=== PATIENT | female | born 1940 | race Caucasian/White ===

== ENCOUNTER 2024-09-02 19:10 | Inpatient (IN) | payer MEDICAID, SELFPAY ==
[2024-09-02 19:41] VITALS: BP 108/72; PULSE 78; RESP 18; TEMP 36.9; O2SAT 94
--- NOTE | 2024-09-02 19:57 | ED_ITS ---
HPI - General Adult General Date Seen: 09/02/24 Chief complaint: GI Bleed Stated complaint: low hemoglobin 5.2 Time Seen by Provider: 09/02/24 19:46 History of Present Illness HPI narrative: 84-year-old female brought to the ER today from her care facility at [facility] because she had a lab draw showing low hemoglobin of 5.2. History is limited because the patient is not a reliable historian. It she seems to have some memory or cognitive dysfunction. Unclear if this is due to previous stroke or if she has underlying dementia. History is obtained partly from the patient, probably from her medical records, and partly from phone conversation with her son Altaf Per the patient she has been having ?stomach problems? off and on for a while. Difficult to get her to delineate what the stomach problems are how long that been going on. At some point she says that she think she has colitis and it looks like in her medical record she was hospitalized for C diff colitis last February. She then says that she has been having intermittent stomach pain and diar vijaya for a year or maybe longer. She says ?they? were going to do a scope but then they keep putting it off. She says she is not having any diarrhea recently. She also says that she is not currently on any anticoagulants (but Eliquis is listed on her med list) History from the patient's son Altaf is that she does have history of AFib and has had stroke in the past when she was taken off Eliquis. It sounds like this was a medication air where she was admitted to a senior living and they did not continue her Eliquis for a week and that she had a significantly disabling stroke after that. After that stroke she then had been admitted at a senior living in the [facility] which she did not like and so she was subsequent transferred to [facility] in [place]. She has been there since this summer. Son says that he is pretty confident she is on Eliquis, because she has had a stroke when she had been taken office in the past and would be at high risk for stroke if taken off it again. Her son is aware that she does have ongoing trouble with her abdomen. It is unclear if she is having pain, nausea, or diarrhea. Sign is not a breast of what workup she has had for that. He thinks she probably had a colonoscopy a couple of years ago. Patient confirms that she did have a colonoscopy and thinks that that she was told to have another 1 in a couple of years but does not remember what the colonoscopy showed. Son is not clear if she has had any diarrhea lately or not. Patient says she does not think she has. Patient denies any black or bloody stools. However she subsequently says that she needs help from her senior living staff to clean her up after bowel movements and that she does not know what color her stools have been. She does not have any previous records in the [facility] system She does have records through [facility] care link. Past medical history includes previous CVA, hypertension, atrial fibrillation not on anticoagulation, chronic heart failure with preserved ejection fraction, dysphagia, constipation, colon polyps, asthma, pancreatic duct stricture, osteopenia, tobacco use, chronic kidney disease stage 3, buttocks ulcers, left hip replacement, C diff( February 2024) Per discharge summary from [facility] from February 2024 83 y.o. 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 ? Hospitalized at [facility] 02/22 - 03/01/24 (day [employer]) where she presented with melena and acute on chronic anemia (Hgb 6.6). EGD 02/23 without bleeding, notable only for LA Grade C esophagitis. Transfused 2 unit with last Hgb 9.9 on 02/26. Started on BID PPI. Colonoscopy deferred to outpatient as she tested positive for c difficile (antigen and toxin positive) for which was started on oral vancomycin. Hospitalization notable for acute on chronic HFpEF treated with IV diuresis and on discharge furosemide increased to 40 mg twice daily from once daily. Discharge weight 181 lb. ? Upon return to her [facility] she was requiring 2 person assist and facility can only provide 1 assist so EMS called and brought to ED. ? Patient had no other concerns aside from feeling weaker than usual. Patient refused TCU as recommended at OSH. In ED, WBC 12.2, Hgb 11.6, plt 507, Na 133, Cr 1.34 and increased from 1.05 day [employer]. ? On admission patient continued to do well.no evidence of ongoing diarrhea.Patient refusing to have labs rechecked and refusing Glucose checks;Lasix was reduced to 40 mg po daily and metformin remains held due to stable BSL and limited oral intake . Patient discharged to SNF 03/05/24, discharged on Protonix, vancomycin, acetaminophen. Also on albuterol, atorvastatin, diltiazem 360 mg XR, Lexapro, ferrous sulfate, furosemide, DuoNebs, melatonin, or montelukast, Zofran, home oxygen 2 liters/minute,. Guaifenesin, senna, trazodone, vitamin-D Most recent hemoglobin in the [facility] system was 03/01/2024. At that time hemoglobin was 11.6. Her baseline hemoglobin dating back to 2020 ranges 11- 13.6. ... Related Data Allergies Allergy/AdvReac Type Severity Reaction Status Date / Time aspirin AdvReac Mild Verified 09/02/24 19:46 PFSH PFSH Social History Smoking Status: Never smoker How often do you have a drink containing alcohol: never AUDIT-C Alcohol total score: 0 Non-prescribed substance use: denies use service: No Exam Narrative: Exam Narrative: Constitutional: Appears well-developed and well-nourished. Alert. Conversant. Non toxic. She is fairly brisk and demanding. Before she will provide history she insists that I get her a diet Coke. After a brought her water she then insist that I bring her a warm blanket (she already had 3 blankets but had kicked them off). She is very brisk in vague with her history. She does not really cooperate with clarifying questions to try to delineate her symptoms and order of events. She does not know why she has it in the ER today. She is not sure if she had labs today or not (it looks like she did have labs today, according to records from her senior living). HENT: Head: Atraumatic. Nose: Nose normal. Mouth/Throat: Oral mucosa is clear and moist. no trismus. Pharynx normal. Tonsils symmetric. No tonsillar enlargement, erythema, or exudate. Eyes: Conjunctivae pale. EOM normal. Pupils equal, round, and reactive to light. No scleral icterus. Neck: Normal range of motion. Neck supple. No tracheal deviation present. Cardiovascular: Normal rate, regular rhythm. No gallop. No friction rub. No murmur heard. Symmetric radial artery pulses Pulmonary/Chest: Effort normal. No stridor. No respiratory distress. No wheezes. No rales. No rhonchi . No tenderness. Abdominal: Soft. Bowel sounds normal. No distension. No mass. Mild left upper quadrant tenderness. No rebound. No guarding. Musculoskeletal: RUE: Normal range of motion. No tenderness. No deformity LUE: Normal range of motion. No tenderness. No deformity RLE: Normal range of motion. No edema. No tenderness. No deformity LLE: Normal range of motion. No edema. No tenderness. No deformity Lymph: No cervical adenopathy. Neurological: Alert and oriented to person, place, and time. Normal strength. CN II-VII intact. No sensory deficit. GCS eye subscore is 4. GCS verbal subscore is 5. GCS motor subscore is 6. Normal coordination Skin: Skin is warm and dry, but pale. Not mottled or diaphoretic.. No rash noted. No pallor. Normal capillary refill. Psychiatric: Normal mood. Somewhat grumpy at times. At other times is much more pleasant and conversant. Const: Vital Signs, click to edit/add: Vital Signs - 24 hr 09/02/24 19:41 Temperature 98.5 F Pulse Rate [Pulse Oximeter] 78 Respiratory Rate 18 Blood Pressure [Ri ght Upper Arm] 108/72 Pulse Oximetry 94 Oxygen Delivery Me thod Room Air Course Vital Signs Vital signs: Initial Vital Signs Temperature 98.5 F 09/02/24 19:41 Temperature Source Temporal Artery Scan 09/02/24 19:41 Pulse Rate 78 09/02/24 19:41 Pulse Rhythm Regular 09/02/24 19:41 Respiratory Rate 18 09/02/24 19:41 Blood Pressure 108/72 09/02/24 19:41 Blood Pressure Mean 84 09/02/24 19:41 Pulse Oximetry 94 09/02/24 19:41 Oxygen Delivery Method Room Air 09/02/24 19:41 Vital Signs Temperature 98.5 F 09/02/24 19:41 Pulse Rate 78 09/02/24 19:41 Respiratory Rate 18 09/02/24 19:41 Blood Pressure 108/72 09/02/24 19:41 Pulse Oximetry 94 09/02/24 19:41 Oxygen Delivery Method Room Air 09/02/24 19:41 Temperature 98.7 F 09/02/24 23:32 Pulse Rate 82 09/02/24 23:32 Respiratory Rate 22 09/02/24 23:32 Blood Pressure 123/68 09/02/24 23:32 Pulse Oximetry 97 09/02/24 23:32 Oxygen Delivery Method Room Air 09/02/24 23:32 Medical Decision Making MDM Narrative Medical decision making narrative: 84-year-old female sent to the ER today from her senior living in [place] with concerned that she was anemic with a hemoglobin of 5.2. Differential for her anemia is broad. However I am most concerned about potential GI bleeding. It sounds like she has had some chronic diarrhea or chronic abdominal pain dating back several months, possibly a year. She denies any recent external bleeding or nose bleeds. She denies being anticoagulated but on her med list she is on Eliquis and her son confirms that she is on Eliquis. She has had bleeding in the past apparently related to C diff colitis. I ordered stool C diff testing although she is not having any diarrhea here in the ER and CT scan to evaluate for colitis or other causes of GI bleeding. CT scan shows a surprising and concerning finding of a potential mass in her ascending colon. Suspect that this mass could be the source of her anemia if it has been causing some chronic lower GI bleeding. Discussed the presence of the mass with the patient in person and with her son Altaf by phone. They understand that we have concern for malignancy but that she needs further workup including bi opsy before this can be confirmed. We also discussed that she is anemic and with hemoglobin less than 7 and symptoms of shortness of breath, transfusion is indicated Verbal consent is obtained for blood transfusion from her son over the phone Main risk with blood transfusion here is that she has a history of CHF and that she could develop symptoms of volume overload. Chest x-ray does show mild evidence for CHF and BNP is mildly elevated at 1700. EKG shows AFib which is chronic and troponin is undetectable. Kidney function is normal. Will start transfusion of 1st unit of crossmatched packed red cells here in the ER. Patient has graciously accepted for admission to the hospitalist service by Dr. Mireles. Son also reiterates to me that he understands she may need to come off Eliquis at least temporarily in preparation for colonoscopy and biopsy or if she has ongoing recurring anemia due to active blood loss. However she would be at high risk for recurrent stroke since she has had a stroke in the past when taken off Eliquis. Lab Data Labs: Lab Results 09/02/24 09/02/24 Range/Units 20:55 21:03 WBC 11.20 H (4.50-11.00) K/uL RBC 2.67 L (4.00-5.20) m/uL Hgb 5.7 L* (12.0-16.0) gm/dL Hct 19.7 L (33.0-51.0) % MCV 74 L (80-100) fL MCH 21 L (26-34) pg MCHC 29 L (32-36) gm/dL RDW Coeff of Gaby 16.6 H (11.5-15.5) % Plt Count 651 H (140-440) K/uL Neut % (Auto) 74.5 H (42.0-72.0) % Lymph % (Auto) 14.2 L (20-44) % [place] % (Auto) 8.4 (0.0-11.0) % Eos % (Auto) 2.1 (0.0-7.0) % Baso % (Auto) 0.5 (0.0-3.0) % Neut # (Auto) 8.30 H (1.7-7.0) K/uL Lymph # (Auto) 1.60 (0.90-2.90) K/uL [place] # (Auto) 0.90 (0.00-0.90) K/UL Eos # (Auto) 0.20 (0.00-0.50) K/uL Baso # (Auto) 0.10 (0.00-0.30) K/uL Abs Immat Gran (auto) 0.00 (0.00-0.30) K/uL Imm/Tot Granulo (auto) 0.3 % Sodium 132 L (135-149) mmol/L Potassium 4.2 (3.6-5.1) mmol/L Chloride 99 (96-114) mmol/L Carbon Dioxide 25 (20-32) mmol/L Anion Gap 8 (7-15) mEq/L BUN 25 (7-30) mg/dL Creatinine 1.0 (0.5-1.5) mg/dL Estimated GFR 56 ml/min Glucose 169 H (60-115) mg/dL Lactate 1.7 (0.5-1.9) mmol/L Calcium 8.4 (8.4-10.6) mg/dL Troponin I < 0.01 L (0.01-0.04) ng/mL NT-Pro-B Natriuret Pep 1730 pg/mL SARS-CoV-2 (PCR) Negative SARS-CoV-2 (Negative) Influenza Type A (PCR) Negative PCR FLU A (Negative) Influenza Type B (PCR) Negative PCR FLU B (Negative) Blood Type A Positive Antibody Screen NEGATIVE Crossmatch (AHG) See Detail Imaging Data CT scan - abdomen: Attestation: I have reviewed the pertinent imaging results. Radiologist's impression: IMPRESSION: 1. Ascending colon mass concerning for malignancy. 2. No evidence of metastatic disease in the abdomen or pelvis. 3. No active GI bleed. 4. Other incidental findings as above. ECG Data Attestation: I personally reviewed and interpreted this ECG as follows: Interpretation: Atrial fibrillation Rate 80 beats per minute QRS axis normal. Small Q-waves in leads [address] segment elevation or depression. Nonspecific T-wave flattening QTC is 431 Discharge Plan Discharge Clinical Impression: Anemia, Colonic mass Patient Disposition: Admitted As Observation
--- NOTE | 2024-09-02 20:05 | CRLHL7_ITS ---
For Patients: As a result of the Century Cures Act, medical imaging exams and procedure reports are released immediately into your electronic medical record. You may view this report before your referring provider. If you have questions, please contact your health care provider. INDICATION: Dyspnea on exertion. History of CHF. TECHNIQUE: Chest 2 view(s) COMPARISON: None available. FINDINGS: Cardiomegaly. Mild central perihilar interstitial opacities, likely reflective of mild pulmonary edema. No layering pleural effusion. No pneumothorax. Extensive multilevel degenerative changes of the visualized spine. Extensive degenerative changes of the bilateral shoulders. IMPRESSION: Mild central perihilar interstitial opacities, likely reflective of mild pulmonary edema, compatible with CHF exacerbation in the setting of cardiomegaly. Dictated by Tejinder Ross MD @ 09/02/2024 8:56:19 PM (Electronically Signed)
--- NOTE | 2024-09-02 20:31 | CRLHL7_ITS ---
For Patients: As a result of the 21st Century Cures Act, medical imaging exams and procedure reports are released immediately into your electronic medical record. You may view this report before your referring provider. If you have questions, please contact your health care provider. INDICATION: Anemia, GI bleed. TECHNIQUE: CT abdomen and pelvis without contrast, and CTA abdomen and pelvis acquired with 95 cc Isovue 370 IV contrast, GI bleed protocol. 2D and 3D MIP images for post-processing were performed and interpreted on an independent workstation, and 3D images were permanently archived. COMPARISON: None. FINDINGS: Lower chest: Few linear parenchymal bands, likely representing subsegmental atelectasis. Cardiomegaly. Coronary artery calcifications. Liver: Unremarkable. Normal in size and attenuation. No suspicious masses. Gallbladder and bile ducts: Unremarkable. No stones or inflammation. No biliary ductal dilatation. Spleen: Unremarkable. Normal in size. No masses. Adrenal glands: Unremarkable. No nodules. Pancreas: Atrophy of the pancreas. Kidneys: Left renal cysts. Subcentimeter hypodense foci are too small to accurately characterize. No hydronephrosis. GI tract: Enhancing mass in the ascending colon near the hepatic flexure measuring approximately 6.0 x 5.9 x 3.2 cm. Colonic diverticulosis without evidence of diverticulitis. No evidence of obstruction. No evidence of active contrast extravasation. Appendix not visualized. Lymph nodes: No lymph nodes enlarged by size criteria. Vasculature: Moderate to severe scattered atherosclerotic calcifications. Abdominal aorta is normal in caliber. Patent mesenteric arteries. Omentum/Peritoneum/Abdominal Wall: Unremarkable. No free air or significant free fluid. Pelvis: Unremarkable. Bones: No suspicious osseous lesions. Degenerative changes. Left hip arthroplasty. IMPRESSION: 1. Ascending colon mass concerning for malignancy. 2. No evidence of metastatic disease in the abdomen or pelvis. 3. No active GI bleed. 4. Other incidental findings as above. Please note that all CT scans at this facility use dose modulation, iterative reconstruction, and/or weight-based dosing when appropriate to reduce radiation dose to as low as reasonably achievable. Dictated by Carson Segura MD @ 09/02/2024 10:25:36 PM (Electronically Signed)
[2024-09-02 21:08] LABS: Lactate* 1.7 mmol/L (0.5-1.9)
[2024-09-02 21:12] LABS: Basophils Percent Auto 0.5 % (0.0-3.0); Eosinophils Percent Auto 2.1 % (0.0-7.0); Hematocrit 19.7 % (33.0-51.0); Immature Granulocytes Pct Auto 0.3 %; Lymphocytes Percent Auto 14.2 % (20-44); Mean Corpuscular HGB Conc 29 gm/dL (32-36); Mean Corpuscular Hemoglobin 21 pg (26-34); Mean Corpuscular Volume 74 fL (80-100); Monocytes Percent Auto 8.4 % (0.0-11.0); Neutrophils Percent Auto 74.5 % (42.0-72.0); Platelet Count* 651 K/uL (140-440); RDW Coefficient of Variation % 16.6 % (11.5-15.5); Red Blood Count 2.67 m/uL (4.00-5.20)
[2024-09-02 21:13] LABS: Hemoglobin* 5.7 gm/dL (12.0-16.0); Slide Review Reflex No
[2024-09-02 21:41] LABS: Chloride* 99 mmol/L (96-114); Potassium* 4.2 mmol/L (3.6-5.1); Sodium* 132 mmol/L (135-149)
[2024-09-02 21:44] LABS: Anion Gap 8 mEq/L (7-15); Blood Urea Nitrogen* 25 mg/dL (7-30); Calcium* 8.4 mg/dL (8.4-10.6); Carbon Dioxide* 25 mmol/L (20-32); Estimated Glomerular Filt Rate 56 ml/min; Glucose* 169 mg/dL (60-115)
[2024-09-02 22:03] LABS: NT Pro B Type NatriureticPept* 1730 pg/mL; Troponin I* < 0.01 ng/mL (0.01-0.04)
[2024-09-02 22:04] LABS: PCR FLU A Negative PCR FLU A (Negative); PCR FLU B Negative PCR FLU B (Negative); SARS PCR* Negative SARS-CoV-2 (Negative)
[2024-09-02 23:25] VITALS: BP 117/86; PULSE 84; RESP 18
[2024-09-02 23:32] VITALS: BP 123/68; PULSE 82; RESP 22; TEMP 37.1; O2SAT 97; BMI 24.1
[2024-09-03] VITALS (28 sets, daily range): BP systolic 99–130; BP diastolic 55–84; PULSE 60–91; RESP 16–20; TEMP 36.2–37.1; O2SAT 90–98
--- NOTE | 2024-09-03 00:53 | P.IMHP_ITS ---
Hospitalist- H&P: HPI History of Present Illness Time Seen by Provider: 00:23 Date Seen: 09/03/24 Chief complaint: low hemoglobin 5.2 Narrative: Ashlie Rich is a 84 year old female with h/o vascular dementia, stroke, chronic anemia, C diff infection over the summer, chronic kidney disease, atrial fibrillation, hypertension hyperlipidemia heart failure with preserved ejection fraction, and asthma who had a hemoglobin drawn at a care center where she lives and this resulted as 5.2. She is noted to be pale but asymptomatic and was sent to the emergency department for further workup. Over this summer she had a hemoglobin of 6.6 and was admitted to [facility] with a C difficile infection, so colonoscopy was deferred to at the outpatient setting, but for unclear reasons was not completed. Ashlie tells me that she has constant abdominal pain that is in the mid abdomen and radiates off to the right. She tells me this has been there for months and she just takes Tums and Tylenol for it and has not sought medical attention for this pain. In the emergency department a CT abdomen and pelvis was obtained and shows an ascending colonic mass suspicious for malignancy. Ashlie had a colonoscopy in 2008 and in 2013. It is unclear if she had 1 in 2018. Review of Systems Status of ROS: Reports: 10 or more systems reviewed and unremarkable except as noted in History and below [facility] Medical History (Updated 09/03/24 @ 01:17 by Marcy Mireles MD) Closed fracture of left proximal humerus ?S42.A - Unspecified fracture of upper end of left humerus, initial encounter for closed fracture (ICD-10) Slow transit constipation ?K59.01 - Slow transit constipation (ICD-10) Urge incontinence ?N39.41 - Urge incontinence (ICD-10) Oropharyngeal dysphagia ?R13.12 - Dysphagia, oropharyngeal phase (ICD-10) Dermatitis ?L30.9 - Dermatitis, unspecified (ICD-10) Pancreatitis ?K85.90 - Acute pancreatitis without necrosis or infection, unspecified (ICD- 10) Adenomatous colon polyp ?D12.6 - Benign neoplasm of colon, unspecified (ICD-10) Tobacco abuse ?Z72.0 - Tobacco use (ICD-10) Anemia ?D64.9 - Anemia, unspecified (ICD-10) History of right MCA stroke ?Z86.73 - Personal history of transient ischemic attack (TIA), and cerebral infarction without residual deficits (ICD-10) Chronic heart failure with preserved ejection fraction ?I50.32 - Chronic diastolic (congestive) heart failure (ICD-10) Chronic kidney disease, stage 3 ?N18.30 - Chronic kidney disease, stage 3 unspecified (ICD-10) Atrial fibrillation ?I48.91 - Unspecified atrial fibrillation (ICD-10) Hypertension ?I10 - Essential (primary) hypertension (ICD-10) Asthma ?J45.909 - Unspecified asthma, uncomplicated (ICD-10) C. difficile colitis ?A04.72 - Enterocolitis due to Clostridium difficile, not specified as recurrent (ICD-10) Surgical History (Updated 09/03/24 @ 01:03 by Marcy Mireles MD) History of laparoscopic appendectomy ?Z90.49 - Acquired absence of other specified parts of digestive tract (ICD- 10) S/P tonsillectomy and adenoidectomy ?Z90.89 - Acquired absence of other organs (ICD-10) H/O rhinoplasty ?Z98.890 - Other specified postprocedural states (ICD-10) H/O esophagogastroduodenoscopy ?Z98.890 - Other specified postprocedural states (ICD-10) History of left hip hemiarthroplasty ?Z96.642 - Presence of left artificial hip joint (ICD-10) Social History (Updated 09/03/24 @ 01:04 by Marcy Mireles MD) Narrative: Currently living in assisted living facility in [facility]. She has about a 25 pack-year history of smoking, it is unclear if she still able to smoke in her current living situation. No alcohol use. Wishes to be a full code. What is your current living situation?: I presently have a place to live Problems where you live: no known problems Problems where you live details: none In the past 12 months, utilities in danger of being shut off: no In past 12 months, lack of transportation kept you from medical appts, meetings, work, or getting things needed for daily living: no In the past 12 mos, have been you worried that your food would run out before you had money to buy more?: never true In the past 12 mos, the food you bought just didn't last and you didn't have money to buy more?: never true Highest level of school completed/degree received: Associate degree: occupational, technical, vocational program Smoking Status: Never smoker Do you use any of these nicotine containing products: None How often do you have a drink containing alcohol: never How often do you have six or more drinks on one occasion: Never AUDIT-C Alcohol total score: 0 Non-prescribed substance use: denies use Caffeine: No How often does anyone, including family, friends and others, physically hurt you : never How often does anyone, including family, friends and others, insult or talk down to you: never How often does anyone, including family, friends and others, threaten you with harm: never How often does anyone, including family, friends and others, scream or curse at you: never service: No Meds Home Medications and Allergies Allergies Allergy/AdvReac Type Severity Reaction Status Date / Time aspirin AdvReac Mild Verified 09/02/24 19:46 Allergies/Adverse Reaction Comments: Pantoprazole 40 mg p.o. daily Albuterol HFA Escitalopram 10 mg p.o. daily Diltiazem ER 180 mg p.o. b.i.d. Furosemide 40 mg p.o. daily Ferrous sulfate 325 mg p.o. daily Atorvastatin 10 mg p.o. daily Melatonin 5 mg p.o. nightly Montelukast sodium 10 mg p.o. nightly Exam Narrative: Exam Narrative: General: No acute distress. Awake alert oriented to self, place, and situation. Pallor noted. HEENT: Normocephalic atraumatic, pupils equally round and reactive to light and accommodation. Oropharynx clear. Mucous membranes are moist. No cervical lymphadenopathy, thyromegaly or carotid bruits. No JVD. Cardiovascular: Irregularly irregular. No murmurs, gallops, or rubs. Chest: No increased work of breathing. Clear to auscultation bilaterally. No crackles or wheezes. Abdomen: Bowel sounds present. Soft, nondistended, mildly tender in the mid to right abdomen No hepatosplenomegaly or masses. Extremities: No edema, no cyanosis or clubbing. Skin: No jaundice, no rashes. Const: Vital Signs, click to edit/add: Vital Signs - 24 hr 09/02/24 19:41 09/02/24 23:25 09/02/24 23:32 Temperature 98.5 F 98.7 F Pulse Rate [Pulse Oximeter] 78 84 Pulse Rate [Right Brachial] 82 Respiratory Rate 18 18 22 Blood Pressure [Ri ght Arm] 123/68 Blood Pressure [Ri ght Upper Arm] 108/72 117/86 Pulse Oximetry 94 97 Oxygen Delivery Me thod Room Air Room Air Hospitalist - H&P: Result Labs Labs: Short CBC 09/02/24 Range/Units 21:03 WBC 11.20 H (4.50-11.00) K/uL Hgb 5.7 L* (12.0-16.0) gm/dL Hct 19.7 L (33.0-51.0) % Plt Count 651 H (140-440) K/uL BMP 09/02/24 21:03 Sodium 132 L Potassium 4.2 Chloride 99 Carbon Dioxide 25 BUN 25 Creatinine 1.0 Glucose 169 H Calcium 8.4 Cardiac Enzymes 09/02/24 Range/Units 21:03 Troponin I < 0.01 L (0.01-0.04) ng/mL Ordering Physician: Terry Pendleton M.D. Date of Service: 09/02/24 Procedure(s): XR chest 2V Accession Number(s): [id number] cc: Terry Pendleton M.D.; Provider,Not a Local~ For Patients: As a result of the Cures Act, medical imaging exams and procedure reports are released immediately into your electronic medical record. You may view this report before your referring provider. If you have questions, please contact your health care provider. INDICATION: Dyspnea on exertion. History of CHF. TECHNIQUE: Chest 2 view(s) COMPARISON: None available. FINDINGS: Cardiomegaly. Mild central perihilar interstitial opacities, likely reflective of mild pulmonary edema. No layering pleural effusion. No pneumothorax. Extensive multilevel degenerative changes of the visualized spine. Extensive degenerative changes of the bilateral shoulders. IMPRESSION: Mild central perihilar interstitial opacities, likely reflective of mild pulmonary edema, compatible with CHF exacerbation in the setting of cardiomegaly. Dictated by Tejinder Ross MD @ 09/02/2024 8:56:19 PM (Electronically Signed) Ordering Physician: Terry Pendleton M.D. Date of Service: 09/02/24 Procedure(s): CT angio abd pel GI Bleed Accession Number(s): [id number] cc: Terry Pendleton M.D.; Provider,Not a Local~ For Patients: As a result of the 21st Century Cures Act, medical imaging exams and procedure reports are released immediately into your electronic medical record. You may view this report before your referring provider. If you have questions, please contact your health care provider. INDICATION: Anemia, GI bleed. TECHNIQUE: CT abdomen and pelvis without contrast, and CTA abdomen and pelvis acquired with 95 cc Isovue 370 IV contrast, GI bleed protocol. 2D and 3D MIP images for post-processing were performed and interpreted on an independent workstation, and 3D images were permanently archived. COMPARISON: None. FINDINGS: Lower chest: Few linear parenchymal bands, likely representing subsegmental atelectasis. Cardiomegaly. Coronary artery calcifications. Liver: Unremarkable. Normal in size and attenuation. No suspicious masses. Gallbladder and bile ducts: Unremarkable. No stones or inflammation. No biliary ductal dilatation. Spleen: Unremarkable. Normal in size. No masses. Adrenal glands: Unremarkable. No nodules. Pancreas: Atrophy of the pancreas. Kidneys: Left renal cysts. Subcentimeter hypodense foci are too small to accurately characterize. No hydronephrosis. GI tract: Enhancing mass in the ascending colon near the hepatic flexure measuring approximately 6.0 x 5.9 x 3.2 cm. Colonic diverticulosis without evidence of diverticulitis. No evidence of obstruction. No evidence of active contrast extravasation. Appendix not visualized. Lymph nodes: No lymph nodes enlarged by size criteria. Vasculature: Moderate to severe scattered atherosclerotic calcifications. Abdominal aorta is normal in caliber. Patent mesenteric arteries. Omentum/Peritoneum/Abdominal Wall: Unremarkable. No free air or significant free fluid. Pelvis: Unremarkable. Bones: No suspicious osseous lesions. Degenerative changes. Left hip arthroplasty. IMPRESSION: 1. Ascending colon mass concerning for malignancy. 2. No evidence of metastatic disease in the abdomen or pelvis. 3. No active GI bleed. 4. Other incidental findings as above. Please note that all CT scans at this facility use dose modulation, iterative reconstruction, and/or weight-based dosing when appropriate to reduce radiation dose to as low as reasonably achievable. Dictated by Carson Segura MD @ 09/02/2024 10:25:36 PM (Electronically Signed) Assessment and Plan Assessment and plan (1) Anemia: Problem comment: - Acute on chronic, microcytic with a high RDW, suspect GI bleeding secondary to probable colonic malignancy - hemoglobin was down to 6.6 in February of 2024 for which she was transfused 2 units packed red blood cells at that time and started on a proton pump inhibitor twice a day. Colonoscopy was deferred to outpatient setting due to C diff infection - current hemoglobin is 5.7. Initially patient refused blood transfusion, but then agreed, noting that her son wanted her to have it. I discussed the risks and benefits of blood products with the patient. The risks include transmission of blood borne illnesses including HIV and hepatitis. Additionally the risks include blood reaction or allergic reaction. Give one unit. Goal Hgb is greater than or equal to 7. Status: Acute (2) Colonic mass: Problem comment: - identified on CT, ascending colon - per ER provider, Dr. Amador from General surgery was contacted and noted no need for immediate surgical intervention - will need ongoing goals of care discussion and outpatient surgical referral. Status: Acute (3) Chronic heart failure with preserved ejection fraction: Problem comment: - currently stable. Will need furosemide if she needs more than 1 unit of blood. Recheck hemoglobin in the morning. Status: Chronic (4) Chronic kidney disease, stage 3: Problem comment: - stable Status: Chronic (5) Atrial fibrillation: Problem comment: - HR well controlled, continue diltiazem, hold Eliquis due to anemia and suspected GI bleeding from colonic mass Status: Chronic
[2024-09-03] MEDS: MELATONIN 3 MG TABLET 6 MG PO ×2 (02:14→21:27)
[2024-09-03] MEDS: ALBUTEROL INHALER 2 PUFF IH (02:19)
--- NOTE | 2024-09-03 02:59 | PC.NURSE ---
updated nurse Maryann from [facility] home via phone
[2024-09-03] MEDS: ONDANSETRON 2 MG/ML inj 4 MG IVP ×2 (03:37→13:32)
[2024-09-03] MEDS: SODIUM CHLORIDE 0.9 % (FLUSH) 10 ML SYRINGE 5 ML IVF ×2 (03:37→09:00)
[2024-09-03 03:59] LABS: Fecal Occult Blood* Positive (Negative)
[2024-09-03] MEDS: ESCITALOPRAM 10 MG TABLET PO (08:59)
[2024-09-03] MEDS: OMEPRAZOLE 20 MG CAPSULE DR PO ×2 (08:59→21:28)
[2024-09-03] MEDS: dilTIAZem 180 MG CAP (CD) PO ×2 (08:59→21:27)
[2024-09-03] MEDS: FERROUS SULFATE 325 MG TABLET PO (08:59)
[2024-09-03] MEDS: FUROSEMIDE 20 MG TABLET 40 MG PO (09:00)
--- NOTE | 2024-09-03 10:39 | REH.PT ---
PT Eval & Treat orders received and chart reviewed. Pt reports that she is ambulatory with a 2ww at [place] and has a w/c for long distances. Reports that she has had PT in the past and hates it and doesn't want it. Declines PT assessment at this time.
[2024-09-03 11:40] LABS: Basophils Absolute Auto 0.03 K/uL (0.00-0.30); Basophils Percent Auto 0.3 % (0.0-3.0); Eosinophils Absolute Auto 0.09 K/uL (0.00-0.50); Eosinophils Percent Auto 0.8 % (0.0-7.0); Hematocrit 21.5 % (33.0-51.0); Immature Granulocytes Abs Auto 0.02 K/uL (0.00-0.30); Immature Granulocytes Pct Auto 0.2 %; Mean Corpuscular HGB Conc 30 gm/dL (32-36); Mean Corpuscular Hemoglobin 22 pg (26-34); Mean Corpuscular Volume 75 fL (80-100); Neutrophils Percent Auto 79.7 % (42.0-72.0); Platelet Count* 554 K/uL (140-440); RDW Coefficient of Variation % 16.7 % (11.5-15.5); Red Blood Count 2.88 m/uL (4.00-5.20); White Blood Count* 10.65 K/uL (4.50-11.00)
[2024-09-03] MEDS: ACETAMINOPHEN 325 MG TABLET 650 MG PO (11:43)
[2024-09-03 11:58] LABS: Hemoglobin* 6.4 gm/dL (12.0-16.0)
[2024-09-03 11:59] LABS: Slide Review Reflex No
--- NOTE | 2024-09-03 14:03 | CRLHL7_ITS ---
For Patients: As a result of the Century Cures Act, medical imaging exams and procedure reports are released immediately into your electronic medical record. You may view this report before your referring provider. If you have questions, please contact your health care provider. INDICATION: Evaluation for metastatic disease. TECHNIQUE: CT chest was acquired with 75 cc Isovue 370 IV contrast. COMPARISON: None. FINDINGS: Lungs and pleura: Mosaic attenuation throughout the lungs. Additional scattered atelectasis. No suspicious nodules or infiltrates. No pleural effusions, pleural thickening, or pneumothorax. Heart and vasculature: Cardiomegaly with coronary artery calcifications.. Thoracic aorta and pulmonary artery are normal in caliber. Lymph nodes/mediastinum: No mediastinal, hilar, or axillary adenopathy. Chest wall: No masses. Upper abdomen: Normal. Bones: Unremarkable for age. IMPRESSION: Mosaic attenuation throughout the lungs, likely related small vessel/airway disease. Otherwise, no acute intrathoracic abnormality, including CT evidence of intrathoracic metastatic disease. Please note that all CT scans at this facility use dose modulation, iterative reconstruction, and/or weight-based dosing when appropriate to reduce radiation dose to as low as reasonably achievable. Dictated by Morris Hoffmann MD @ 09/03/2024 9:37:21 PM (Electronically Signed)
--- NOTE | 2024-09-03 14:41 | REH.OT ---
OT consult order received. Pt. cares and procedures prevent OT eval today. Plan to reattempt tomorrow.
--- NOTE | 2024-09-03 15:11 | PC.SOCIAL ---
Discharge planning: Received call from Osman at [facility] in [place] stating pt is a resident of their facility in [facility]. Osman shared that they are not able to receive pt's back if they are receiving chemo therapy and requested to be updated on plan of care for pt when determined. They requested information be sent when pt is ready for discharge to determine if they can continue to meet pt's needs at [facility]. lunchroom worker to follow up as needed.
--- NOTE | 2024-09-03 15:57 | PM.GSCN ---
History of Present Illness Consult details Date Seen: 09/03/24 Consult date: 09/03/24 Narrative: Patient admitted from the emergency department for anemia. A CT scan of the abdomen was obtained which demonstrated a large mass of the ascending colon concerning for colon cancer. Patient is a poor historian and appears confused. She does report daily abdominal pain, but then states it happens while she gets blood transfusions. She reports getting blood transfusions on a regular basis. She denies any nausea or vomiting. No bloody emesis. She has regular bowel movements and denies any bleeding with bowel movements. She does report an unintentional 5 lb weight loss. She reports that her last colonoscopy was 3 years ago and fine. She denies any abdominal surgeries. On chart review patient had an admission over the summer for C diff colitis with anemia of 6.6. It was recommended that she have a colonoscopy at that time, but did not proceed with it for unclear reasons. The last colonoscopy in the chart was in 2013 with a singular tubular adenoma found in the ascending colon She has had a laparoscopic appendectomy and ligation of her fallopian tubes. Review of Systems Status of ROS: Reports: unobtainable due to medical condition [facility] Medical History (Updated 09/03/24 @ 01:17 by Marcy Mireles MD) Closed fracture of left proximal humerus ?S42.202A - Unspecified fracture of upper end of left humerus, initial encounter for closed fracture (ICD-10) Slow transit constipation ?K59.01 - Slow transit constipation (ICD-10) Urge incontinence ?N39.41 - Urge incontinence (ICD-10) Oropharyngeal dysphagia ?R13.12 - Dysphagia, oropharyngeal phase (ICD-10) Dermatitis ?L30.9 - Dermatitis, unspecified (ICD-10) Pancreatitis ?K85.90 - Acute pancreatitis without necrosis or infection, unspecified (ICD-10) Adenomatous colon polyp ?D12.6 - Benign neoplasm of colon, unspecified (ICD-10) Tobacco abuse ?Z72.0 - Tobacco use (ICD-10) Anemia ?D64.9 - Anemia, unspecified (ICD-10) History of right MCA stroke ?Z86.73 - Personal history of transient ischemic attack (TIA), and cerebral infarction without residual deficits (ICD-10) Chronic heart failure with preserved ejection fraction ?I50.32 - Chronic diastolic (congestive) heart failure (ICD-10) Chronic kidney disease, stage 3 ?N18.30 - Chronic kidney disease, stage 3 unspecified (ICD-10) Atrial fibrillation ?I48.91 - Unspecified atrial fibrillation (ICD-10) Hypertension ?I10 - Essential (primary) hypertension (ICD-10) Asthma ?J45.909 - Unspecified asthma, uncomplicated (ICD-10) C. difficile colitis ?A04.72 - Enterocolitis due to Clostridium difficile, not specified as recurrent (ICD-10) Surgical History (Updated 09/03/24 @ 01:03 by Marcy Mireles MD) History of laparoscopic appendectomy ?Z90.49 - Acquired absence of other specified parts of digestive tract (ICD-10) S/P tonsillectomy and adenoidectomy ?Z90.89 - Acquired absence of other organs (ICD-10) H/O rhinoplasty ?Z98.890 - Other specified postprocedural states (ICD-10) H/O esophagogastroduodenoscopy ?Z98.890 - Other specified postprocedural states (ICD-10) History of left hip hemiarthroplasty ?Z96.642 - Presence of left artificial hip joint (ICD-10) Social History (Updated 09/03/24 @ 01:04 by Marcy Mireles MD) Narrative: Currently living in assisted living facility in [facility]. She has about a 25 pack-year history of smoking, it is unclear if she still able to smoke in her current living situation. No alcohol use. Wishes to be a full code. What is your current living situation?: I presently have a place to live Problems where you live: no known problems Problems where you live details: none In the past 12 months, utilities in danger of being shut off: no In past 12 months, lack of transportation kept you from medical appts, meetings, work, or getting things needed for daily living: no In the past 12 mos, have been you worried that your food would run out before you had money to buy more?: never true In the past 12 mos, the food you bought just didn't last and you didn't have money to buy more?: never true Highest level of school completed/degree received: Associate degree: occupational, technical, vocational program Smoking Status: Never smoker Do you use any of these nicotine containing products: None How often do you have a drink containing alcohol: never How often do you have six or more drinks on one occasion: Never AUDIT-C Alcohol total score: 0 Non-prescribed substance use: denies use Caffeine: No How often does anyone, including family, friends and others, physically hurt you: never How often does anyone, including family, friends and others, insult or talk down to you: never How often does anyone, including family, friends and others, threaten you with harm: never How often does anyone, including family, friends and others, scream or curse at you: never service: No Meds Home Medications and Allergies Home Medications ?Medication ?Instructions ?Recorded ?Confirmed ?Type acetaminophen 500 mg capsule 1,000 mg PO TID 09/03/24 09/03/24 History albuterol sulfate 90 mcg/actuation 2 inh inhalation Q4H PRN 09/03/24 09/03/24 History aerosol inhaler apixaban 5 mg tablet (Eliquis) 5 mg PO BID 09/03/24 09/03/24 History atorvastatin 10 mg tablet 10 mg PO DAILY 09/03/24 09/03/24 History calcium 600 mg capsule 1,200 mg PO Q6H PRN 09/03/24 09/03/24 History cholecalciferol (vitamin D3) 25 3,000 unit PO DAILY 09/03/24 09/03/24 History mcg (1,000 unit) chewable tablet (Vitamin D3) diclofenac sodium 1 % topical gel 4 g topical BID 09/03/24 09/03/24 History escitalopram oxalate 10 mg tablet 10 mg PO DAILY 09/03/24 09/03/24 History ferrous sulfate 325 mg (65 mg 325 mg PO DAILY 09/03/24 09/03/24 History iron) tablet (FeroSul) furosemide 40 mg tablet 40 mg PO DAILY 09/03/24 09/03/24 History guaifenesin 400 mg tablet 400 mg PO Q4H PRN 09/03/24 09/03/24 History melatonin 5 mg capsule 5 mg PO HS 09/03/24 09/03/24 History montelukast 10 mg tablet 10 mg PO HS 09/03/24 09/03/24 History ondansetron 4 mg disintegrating 4 mg PO Q4H PRN 09/03/24 09/03/24 History tablet pantoprazole 40 mg tablet,delayed 40 mg PO DAILY 09/03/24 09/03/24 History release sennosides 8.6 mg-docusate sodium 1 tab-cap PO BID PRN 09/03/24 09/03/24 History 50 mg tablet (Senna-S) Allergies Allergy/AdvReac Type Severity Reaction Status Date / Time aspirin AdvReac Mild Verified 09/02/24 19:46 Exam Narrative: Exam Narrative: General alert, oriented to self and place. Nontoxic Respiratory: Equal breath rise bilaterally, maintained on room air CV: Well perfused Abdomen: Soft, nontender to palpation with no guarding or rebound Const: Vital Signs, click to edit/add: Vital Signs - 24 hr 09/02/24 19:41 09/02/24 23:25 09/02/24 23:32 Temperature 98.5 F 98.7 F Pulse Rate Pulse Rate [Pulse Oximeter] 78 84 Pulse Rate [Right Brachial] 82 Pulse Rate [Right Radial] Respiratory Rate 18 18 22 Blood Pressure Blood Pressure [Ri ght Arm] 123/68 Blood Pressure [Ri ght Upper Arm] 108/72 117/86 Pulse Oximetry 94 97 [facility] 09/03/24 00:54 09/03/24 01:04 09/03/24 01:30 Temperature 98.7 F 98.2 F 97.2 F L Pulse Rate 79 77 77 Pulse Rate [Pulse Oximeter] Pulse Rate [Right Brachial] Pulse Rate [Right Radial] Respiratory Rate 20 20 20 Blood Pressure 115/55 L 118/71 121/78 Blood Pressure [Ri ght Arm] Blood Pressure [Ri ght Upper Arm] Pulse Oximetry 94 97 [facility] Room Air Room Air 09/03/24 01:40 09/03/24 02:35 09/03/24 03:00 Temperature 97.5 F L 97.5 F L 97.5 F L Pulse Rate 91 83 78 Pulse Rate [Pulse Oximeter] Pulse Rate [Right Brachial] Pulse Rate [Right Radial] Respiratory Rate 18 18 18 Blood Pressure 102/84 102/67 109/74 Blood Pressure [Ri ght Arm] Blood Pressure [Ri ght Upper Arm] Pulse Oximetry 97 95 98 Oxygen Delivery Dc thod Room Air Room Air Room Air 09/03/24 03:00 09/03/24 08:13 09/03/24 08:13 Temperature 97.5 F L 97.9 F Pulse Rate Pulse Rate [Pulse Oximeter] Pulse Rate [Right Brachial] 82 Pulse Rate [Right Radial] 85 Respiratory Rate 18 18 18 Blood Pressure Blood Pressure [Ri ght Arm] 109/78 111/65 Blood Pressure [Ri ght Upper Arm] Pulse Oximetry 98 92 92 [facility] Room Air Room Air 09/03/24 11:45 09/03/24 13:45 09/03/24 14:07 Temperature 98.0 F 98.6 F 98.2 F Pulse Rate 83 77 Pulse Rate [Pulse Oximeter] Pulse Rate [Right Brachial] Pulse Rate [Right Radial] 87 Respiratory Rate 18 18 18 Blood Pressure 100/60 106/58 L Blood Pressure [Ri ght Arm] 113/63 Blood Pressure [Ri ght Upper Arm] Pulse Oximetry 93 96 95 Oxygen Delivery [facility] Room Air Room Air Room Air 09/03/24 14:37 09/03/24 15:07 09/03/24 15:07 Temperature 98.1 F 98.3 F Pulse Rate 87 72 Pulse Rate [Pulse Oximeter] Pulse Rate [Right Brachial] Pulse Rate [Right Radial] Respiratory Rate 16 16 16 Blood Pressure 102/61 111/56 L Blood Pressure [Ri ght Arm] Blood Pressure [Ri ght Upper Arm] Pulse Oximetry 93 95 [address] [facility] Room Air Room Air 09/03/24 15:07 09/03/24 15:37 Temperature 98.3 F 98.1 F Pulse Rate 83 Pulse Rate [Pulse Oximeter] Pulse Rate [Right Brachial] Pulse Rate [Right Radial] 72 Respiratory Rate 16 18 Blood Pressure 105/65 Blood Pressure [Ri ght Arm] 111/56 L Blood Pressure [Ri ght Upper Arm] Pulse Oximetry 95 94 [facility] Room Air Results Labs Labs: Abnormal lab results 09/02/24 09/03/24 09/03/24 Range/Units 21:03 03:45 11:33 WBC 11.20 H (4.50-11.00) K/uL RBC 2.67 L 2.88 L (4.00-5.20) m/uL Hgb 5.7 L* 6.4 L* (12.0-16.0) gm/dL Hct 19.7 L 21.5 L (33.0-51.0) % MCV 74 L 75 L (80-100) fL MCH 21 L 22 L (26-34) pg MCHC 29 L 30 L (32-36) gm/dL RDW Coeff of Gaby 16.6 H 16.7 H (11.5-15.5) % Plt Count 651 H 554 H (140-440) K/uL Neut % (Auto) 74.5 H 79.7 H (42.0-72.0) % Lymph % (Auto) 14.2 L 11.0 L (20-44) % Neut # (Auto) 8.30 H 8.50 H (1.7-7.0) K/uL Sodium 132 L (135-149) mmol/L Glucose 169 H (60-115) mg/dL Troponin I < 0.01 L (0.01-0.04) ng/mL Stool Occult Blood Positive A (Negative) Crossmatch ([facility]) See Detail Diabetes panel 09/02/24 Range/Units 21:03 Sodium 132 L (135-149) mmol/L Potassium 4.2 (3.6-5.1) mmol/L Chloride 99 (96-114) mmol/L Carbon Dioxide 25 (20-32) mmol/L BUN 25 (7-30) mg/dL Creatinine 1.0 (0.5-1.5) mg/dL Glucose 169 H (60-115) mg/dL Calcium 8.4 (8.4-10.6) mg/dL Calcium panel 09/02/24 Range/Units 21:03 Calcium 8.4 (8.4-10.6) mg/dL Pituitary panel 09/02/24 Range/Units 21:03 Sodium 132 L (135-149) mmol/L Potassium 4.2 (3.6-5.1) mmol/L Chloride 99 (96-114) mmol/L Carbon Dioxide 25 (20-32) mmol/L BUN 25 (7-30) mg/dL Creatinine 1.0 (0.5-1.5) mg/dL Glucose 169 H (60-115) mg/dL Calcium 8.4 (8.4-10.6) mg/dL Adrenal panel 09/02/24 Range/Units 21:03 Sodium 132 L (135-149) mmol/L Potassium 4.2 (3.6-5.1) mmol/L Chloride 99 (96-114) mmol/L Carbon Dioxide 25 (20-32) mmol/L BUN 25 (7-30) mg/dL Creatinine 1.0 (0.5-1.5) mg/dL Glucose 169 H (60-115) mg/dL Calcium 8.4 (8.4-10.6) mg/dL All other labs normal. Progress Note:A&P Assessment and plan (1) Colonic mass: Status: Acute Assessment and Plan: Evidence of colonic mass of the ascending colon seen on CT imaging. This is a new finding when compared to previous CT imaging from 2020, for which she was hospitalized for acute appendicitis. Given this finding in the setting of chronic anemia it is concerning for possible malignancy. No current evidence of obstruction or perforation and no need for emergent surgical intervention. Would recommend further workup with CT chest, CEA and colonoscopy to obtain a tissue diagnosis.
[2024-09-03] MEDS: FUROSEMIDE 10 MG/ML inj 20 MG IVP (16:49)
--- NOTE | 2024-09-03 17:12 | P.IMPN_ITS ---
Progress Note: A&P Assessment and plan (1) Anemia: Problem details: - Acute on chronic, microcytic with a high RDW, suspect GI bleeding secondary to probable colonic malignancy - hemoglobin was down to 6.6 in February of 2024 for which she was transfused 2 units packed red blood cells at that time and started on a proton pump inhibitor twice a day. - current hemoglobin is 5.7. Initially patient refused blood transfusion, but then agreed, noting that her son wanted her to have it. I discussed the risks and benefits of blood products with the patient. The risks include transmission of blood borne illnesses including HIV and hepatitis. Additionally the risks include blood reaction or allergic reaction. Give one unit. Goal Hgb is greater than or equal to 7. Status: Acute (2) Colonic mass: Problem details: - identified on CT, ascending colon Discussion with family: Will perform colonoscopy in the hospital. Status: Acute (3) Atrial fibrillation: Problem details: - HR well controlled, continue diltiazem, hold Eliquis due to anemia and suspected GI bleeding from colonic mass Status: Chronic (4) Chronic kidney disease, stage 3: Problem details: - stable Status: Chronic (5) Chronic heart failure with preserved ejection fraction: Problem details: - currently stable. Will need furosemide if she needs more than 1 unit of blood. Recheck hemoglobin in the morning. Status: Chronic (6) Stroke due to embolism: Problem details: She has had recurrent stroke according to her son. Possibly the cause of her dementia. Probably related to AFib. Eliquis was started after a stroke and then stop this summer because of GI bleeding. Had another stroke this fall. Status: Acute (7) Dementia: Problem details: Possibly multi-infarct dementia related to stroke. May no longer be able to provide medical decision making without family involvement Status: Acute Plan Patient admitted to the hospital for evaluation treatment of anemia and now colonic mass. Will transfuse, monitor for complications a transfusion including heart failure exacerbation, obtain colonoscopy and developed plan with surgery for outpatient follow-up. Total time spent today is 60 minutes in reviewing records and in coordination of care and discussing with patient, family and surgeon ongoing plan of care Subjective Date Seen: 09/03/24 Interval history: Ashlie Rich is a 84 year old female with h/o vascular dementia, stroke, chronic anemia, C diff infection over the summer, chronic kidney disease, atrial fibrillation, hypertension hyperlipidemia heart failure with preserved ejection fraction, and asthma who had a hemoglobin drawn at a care center where she lives and this resulted as 5.2. She is noted to be pale but asymptomatic and was sent to the emergency department for further workup. Over this summer she had a hemoglobin of 6.6 and was admitted to [facility] with a C difficile infection, so colonoscopy was deferred to at the outpatient setting, but for unclear reasons was not completed. Patient is previous history of colonoscopy. It appears that the last colonoscopy was in 2013 and had adenomatous polyps. She was recommended a 3 year follow-up and apparently that did not occur either. On admission: Ashlie reported that she has constant abdominal pain that is in the mid abdomen and radiates off to the right. She tells me this has been there for months and she just takes Tums and Tylenol for it and has not sought medical attention for this pain. In the emergency department a CT abdomen and pelvis was obtained and shows an ascending colonic mass suspicious for malignancy. Patient has dementia. She is unable to recall the events described above. This is obtained from the medical record. She does concur with that when I give her this information however. According to her son she has been having strokes. She has chronic atrial fibrillation and has been on Eliquis but this was stopped when she had a GI bleed this summer. It was not restarted at that time perhaps because there is a hope that she would get outpatient colonoscopy before was resumed. Apparently had a stroke this fall. She is now in assisted living because of her disabilities. I spoke with her son about this and indicated that with her dementia I am not sure that she is currently able to make decisions for herself. She was agreeable to having me speak with her sons and I informed them that they are likely to have to take over her medical decision making. I spoke with both of them about a plan of care and they were both agreeable to it. Exam Narrative: Exam Narrative: She is alert and appears in no distress. She is oriented to be in the hospital but does not know where or when. She does remember that she is here because of low hemoglobin. She is pale in appearance but otherwise in no distress. Respirations are clear to auscultation. Cardiovascular: S1, S2, irregular rate and rhythm. Abdomen: Bowel sounds active. Abdomen is soft without tenderness. Extremities without edema. Const: Vital Signs, click to edit/add: Vital Signs - 24 hr 09/02/24 19:41 09/02/24 23:25 09/02/24 23:32 Temperature 98.5 F 98.7 F Pulse Rate Pulse Rate [Pulse Oximeter] 78 84 Pulse Rate [Right Brachial] 82 Pulse Rate [Right Radial] Respiratory Rate 18 18 22 Blood Pressure Blood Pressure [Ri ght Arm] 123/68 Blood Pressure [Ri ght Upper Arm] 108/72 117/86 [address]ulse Oximetry [address] thod Room Air Room Air 09/03/24 00:54 09/03/24 01:04 09/03/24 01:30 Temperature 98.7 F 98.2 F 97.2 F L Pulse Rate 79 77 77 Pulse Rate [Pulse Oximeter] Pulse Rate [Right Brachial] Pulse Rate [Right Radial] Respiratory Rate 20 20 20 Blood Pressure 115/55 L 118/71 121/78 Blood Pressure [Ri ght Arm] Blood Pressure [Ri ght Upper Arm] Pulse Oximetry 94 97 [facility] Room [facility] 09/03/24 01:40 09/03/24 02:35 09/03/24 03:00 Temperature 97.5 F L 97.5 F L 97.5 F L Pulse Rate 91 83 78 Pulse Rate [Pulse Oximeter] Pulse Rate [Right Brachial] Pulse Rate [Right Radial] Respiratory Rate 18 18 18 Blood Pressure 102/84 102/67 109/74 Blood Pressure [Ri ght Arm] Blood Pressure [Ri ght Upper Arm] Pulse Oximetry 97 95 98 [facility] Room Air 09/03/24 03:00 09/03/24 08:13 09/03/24 08:13 Temperature 97.5 F L 97.9 F Pulse Rate Pulse Rate [Pulse Oximeter] Pulse Rate [Right Brachial] 82 Pulse Rate [Right Radial] 85 Respiratory Rate 18 18 18 Blood Pressure Blood Pressure [Ri ght Arm] 109/78 111/65 Blood Pressure [Ri ght Upper Arm] Pulse Oximetry [address] thod Room Air Room Air Room Air 09/03/24 11:45 09/03/24 13:45 09/03/24 14:07 Temperature 98.0 F 98.6 F 98.2 F Pulse Rate 83 77 Pulse Rate [Pulse Oximeter] Pulse Rate [Right Brachial] Pulse Rate [Right Radial] 87 Respiratory Rate 18 18 18 Blood Pressure 100/60 106/58 L Blood Pressure [Ri ght Arm] 113/63 Blood Pressure [Ri ght Upper Arm] Pulse Oximetry 93 96 95 Oxygen Delivery Me thod Room Air Room Air Room Air 09/03/24 14:37 09/03/24 15:07 09/03/24 15:07 Temperature 98.1 F 98.3 F Pulse Rate 87 72 Pulse Rate [Pulse Oximeter] Pulse Rate [Right Brachial] Pulse Rate [Right Radial] Respiratory Rate 16 16 16 Blood Pressure 102/61 111/56 L Blood Pressure [Ri ght Arm] Blood Pressure [Ri ght Upper Arm] Pulse Oximetry 93 95 95 Oxygen Delivery Me thod Room Air Room Air 09/03/24 15:07 09/03/24 15:37 09/03/24 17:01 Temperature 98.3 F 98.1 F 98.3 F Pulse Rate 83 81 Pulse Rate [Pulse Oximeter] Pulse Rate [Right Brachial] Pulse Rate [Right Radial] 72 Respiratory Rate 16 18 18 Blood Pressure 105/65 118/72 Blood Pressure [Ri ght Arm] 111/56 L Blood Pressure [Ri ght Upper Arm] Pulse Oximetry 95 94 95 Oxygen Delivery Me thod Room Air Room Air Room Air Documenting provider has reviewed patient's vital signs: yes Labs Labs: Laboratory Results - last 24 hr 09/02/24 09/02/24 09/03/24 20:55 21:03 03:45 WBC 11.20 H RBC 2.67 L Hgb 5.7 L* Hct 19.7 L MCV 74 L MCH 21 L MCHC 29 L RDW Coeff of Gaby 16.6 H Plt Count 651 H Neut % (Auto) 74.5 H Lymph % (Auto) 14.2 L [place] % (Auto) 8.4 Eos % (Auto) 2.1 Baso % (Auto) 0.5 Neut # (Auto) 8.30 H Lymph # (Auto) 1.60 [place] # (Auto) 0.90 Eos # (Auto) 0.20 Baso # (Auto) 0.10 Abs Immat Gran (auto) 0.00 Imm/Tot Granulo (auto) 0.3 Sodium 132 L Potassium 4.2 Chloride 99 Carbon Dioxide 25 Anion Gap 8 BUN 25 Creatinine 1.0 Estimated GFR 56 Glucose 169 H Lactate 1.7 Calcium 8.4 Troponin I < 0.01 L NT-Pro-B Natriuret Pep 1730 Stool Occult Blood Positive A SARS-CoV-2 (PCR) Negative SARS-CoV-2 Influenza Type A (PCR) Negative PCR FLU A Influenza Type B (PCR) Negative PCR FLU B Blood Type A Positive Antibody Screen NEGATIVE Crossmatch ([facility]) See Detail 09/03/24 11:33 WBC 10.65 RBC 2.88 L Hgb 6.4 L* Hct 21.5 L MCV 75 L MCH 22 L MCHC 30 L RDW Coeff of Gaby 16.7 H Plt Count 554 H Neut % (Auto) 79.7 H Lymph % (Auto) 11.0 L [place] % (Auto) 8.0 Eos % (Auto) 0.8 Baso % (Auto) 0.3 Neut # (Auto) 8.50 H Lymph # (Auto) 1.20 [place] # (Auto) 0.90 Eos # (Auto) 0.09 Baso # (Auto) 0.03 Abs Immat Gran (auto) 0.02 Imm/Tot Granulo (auto) 0.2 Sodium Potassium Chloride Carbon Dioxide Anion Gap BUN Creatinine Estimated GFR Glucose Lactate Calcium Troponin I NT-Pro-B Natriuret Pep Stool Occult Blood SARS-CoV-2 (PCR) Influenza Type A (PCR) Influenza Type B (PCR) Blood Type Antibody Screen Crossmatch ([facility])
[2024-09-03] MEDS: MONTELUKAST 10 MG TABLET PO (21:28)
[2024-09-03] MEDS: ATORVASTATIN 10 MG TABLET PO (21:28)
[2024-09-04 03:00] VITALS: BP 115/78; PULSE 74; RESP 18; TEMP 36.5; O2SAT 94
[2024-09-04 06:51] LABS: Basophils Absolute Auto 0.03 K/uL (0.00-0.30); Basophils Percent Auto 0.3 % (0.0-3.0); Eosinophils Absolute Auto 0.26 K/uL (0.00-0.50); Eosinophils Percent Auto 2.8 % (0.0-7.0); Hematocrit 29.2 % (33.0-51.0); Hemoglobin* 9.2 gm/dL (12.0-16.0); Immature Granulocytes Abs Auto 0.01 K/uL (0.00-0.30); Immature Granulocytes Pct Auto 0.1 %; Lymphocytes Percent Auto 16.8 % (20-44); Mean Corpuscular HGB Conc 32 gm/dL (32-36); Mean Corpuscular Hemoglobin 25 pg (26-34); Mean Corpuscular Volume 79 fL (80-100); Monocytes Percent Auto 12.4 % (0.0-11.0); Neutrophils Absolute Auto 6.36 K/uL (1.7-7.0); Neutrophils Percent Auto 67.6 % (42.0-72.0); Platelet Count* 469 K/uL (140-440); RDW Coefficient of Variation % 17.3 % (11.5-15.5); White Blood Count* 9.41 K/uL (4.50-11.00)
[2024-09-04 06:56] LABS: Slide Review Reflex No
--- NOTE | 2024-09-04 08:27 | PC.NURSE ---
Shift note ([id number]): Patient pleasant, alert and oriented. Received blood transfusion last evening. Tolerated well and reports was feeling better. Continues on a clear liquid diet. Transferred to bedside commode with easy-stand. Denied any discomfort. Cooperative with lab draw this morning. ?
[2024-09-04 08:43] VITALS: BP 116/77; PULSE 76; RESP 16; TEMP 36.5; O2SAT 92
[2024-09-04] MEDS: OMEPRAZOLE 20 MG CAPSULE DR PO ×2 (08:45→21:07)
[2024-09-04] MEDS: FERROUS SULFATE 325 MG TABLET PO (08:45)
[2024-09-04] MEDS: FUROSEMIDE 20 MG TABLET 40 MG PO (08:45)
[2024-09-04] MEDS: ESCITALOPRAM 10 MG TABLET PO (08:45)
[2024-09-04] MEDS: dilTIAZem 180 MG CAP (CD) PO ×2 (08:45→21:07)
[2024-09-04] MEDS: SODIUM CHLORIDE 0.9 % (FLUSH) 10 ML SYRINGE 5 ML IVF (08:46)
--- NOTE | 2024-09-04 09:28 | NUTR.NU ---
RDN with nutrition screen related to positive skin risk. Patient admitted with GI bleed and new colon mass. Concern for cancer. Patient's medical history is significant for dementia and heart failure. Patient lives at [facility]. Current weight 162lb 9.6oz; height 5ft 9in; BMI 24.0 kg/m2. No weight history to assess. Current diet is clear liquids. Plan for colonoscopy tomorrow. No nutrition interventions at this time due to current diet order. RDN will continue to monitor and follow-up as appropriate.
[2024-09-04] MEDS: bisacodyL 5 MG TABLET DR 10 MG PO ×2 (11:40→14:59)
[2024-09-04 11:47] VITALS: BP 109/65; PULSE 62; RESP 16; TEMP 36.6; O2SAT 94
[2024-09-04] MEDS: polyethylene glycoL 238 GM BULK BOTTLE PO (14:54)
[2024-09-04 15:00] VITALS: BP 97/63; PULSE 73; RESP 18; TEMP 36.9; O2SAT 95
--- NOTE | 2024-09-04 15:31 | PM.IMPN1 ---
Progress Note: A&P Assessment and plan (1) Anemia: Problem details: - Acute on chronic, microcytic with a high RDW, suspect GI bleeding secondary to probable colonic malignancy - hemoglobin was down to 6.6 in February of 2024 for which she was transfused 2 units packed red blood cells at that time and started on a proton pump inhibitor twice a day. Initial hemoglobin is 5.7. Transfused 3 units of blood to a hemoglobin of 9.2. Tolerated this well Status: Acute (2) Colonic mass: Problem details: - identified on CT, ascending colon Discussion with family: Will perform colonoscopy in the hospital. Status: Acute (3) Atrial fibrillation: Problem details: - HR well controlled, continue diltiazem, hold Eliquis due to anemia and suspected GI bleeding from colonic mass Status: Chronic (4) Chronic kidney disease, stage 3: Problem details: - stable Status: Chronic (5) Chronic heart failure with preserved ejection fraction: Problem details: - currently stable. Will need furosemide if she needs more than 1 unit of blood. Recheck hemoglobin in the morning. Status: Chronic (6) Stroke due to embolism: Problem details: She has had recurrent stroke according to her son. Possibly the cause of her dementia. Probably related to AFib. Eliquis was started after a stroke and then stop this summer because of GI bleeding. Had another stroke this fall. Status: Acute (7) Dementia: Problem details: Possibly multi-infarct dementia related to stroke. May no longer be able to provide medical decision making without family involvement Status: Acute Plan Continue in hospital for evaluation of GI bleeding, colon mass, other chronic medical problems. Total time spent today is 35 minutes in evaluation and management and discussing with patient and other providers colon prep and colonoscopy Subjective Date Seen: 09/04/24 Interval history: Ashlie Rich is a 84 year old female with h/o vascular dementia, stroke, chronic anemia, C diff infection over the summer, chronic kidney disease, atrial fibrillation, hypertension hyperlipidemia heart failure with preserved ejection fraction, and asthma who had a hemoglobin drawn at a care center where she lives and this resulted as 5.2. She is noted to be pale but asymptomatic and was sent to the emergency department for further workup. Over this summer she had a hemoglobin of 6.6 and was admitted to [facility] with a C difficile infection, so colonoscopy was deferred to at the outpatient setting, but for unclear reasons was not completed. Patient is previous history of colonoscopy. It appears that the last colonoscopy was in 2013 and had adenomatous polyps. She was recommended a 3 year follow-up and apparently that did not occur either. On admission: Ashlie reported that she has constant abdominal pain that is in the mid abdomen and radiates off to the right. She tells me this has been there for months and she just takes Tums and Tylenol for it and has not sought medical attention for this pain. In the emergency department a CT abdomen and pelvis was obtained and shows an ascending colonic mass suspicious for malignancy. Patient has dementia. She is unable to recall the events described above. This is obtained from the medical record. She does concur with that when I give her this information however. According to her son she has been having strokes. She has chronic atrial fibrillation and has been on Eliquis but this was stopped when she had a GI bleed this summer. It was not restarted at that time perhaps because there is a hope that she would get outpatient colonoscopy before was resumed. Apparently had a stroke this fall. She is now in assisted living because of her disabilities. I spoke with her son about this and indicated that with her dementia I am not sure that she is currently able to make decisions for herself. She was agreeable to having me speak with her sons and I informed them that they are likely to have to take over her medical decision making. I spoke with both of them about a plan of care and they were both agreeable to it. 09/04/2024: Patient is sleepy. She has no complaints. She does not recall her circumstances. Tolerated the transfusion well. Beginning the prep for colonoscopy. Needing lots of reminders and encouragement. Exam Narrative: Exam Narrative: I rales her from sleep. She reports no concerns today. Respirations are clear to auscultation. Cardiovascular: S1, S2, regular rate and rhythm. Abdomen: Bowel sounds are present. Abdomen is without tenderness. Const: Vital Signs, click to edit/add: Vital Signs - 24 hr 09/03/24 15:37 09/03/24 16:07 09/03/24 16:37 Temperature 98.1 F 98.3 F 98.2 F Pulse Rate 83 86 80 Pulse Rate [Pulse Oximeter] Respiratory Rate 18 16 16 Blood Pressure 105/65 108/70 110/68 Blood Pressure [Ri ght Arm] Pulse Oximetry 94 95 94 Oxygen Delivery Me thod Room Air Room Air Room Air 09/03/24 16:55 09/03/24 17:01 09/03/24 17:18 Temperature 98.3 F 98.3 F 98.2 F Pulse Rate 81 81 76 Pulse Rate [Pulse Oximeter] Respiratory Rate 18 18 18 Blood Pressure 118/72 118/72 130/75 Blood Pressure [Ri ght Arm] Pulse Oximetry 95 95 96 Oxygen Delivery Me thod Room Air Room Air Room Air 09/03/24 17:33 09/03/24 18:03 09/03/24 18:33 Temperature 98.1 F 98.3 F 98.5 F Pulse Rate 80 82 74 Pulse Rate [Pulse Oximeter] Respiratory Rate 16 18 18 Blood Pressure 121/72 119/72 106/61 Blood Pressure [Ri ght Arm] Pulse Oximetry 95 94 94 Oxygen Delivery Me thod Room Air Room Air Room Air 09/03/24 19:03 09/03/24 19:40 09/03/24 19:45 Temperature 98.3 F 98.2 F 98.2 F Pulse Rate 78 79 Pulse Rate [Pulse Oximeter] 79 Respiratory Rate 16 18 18 Blood Pressure 115/70 123/81 Blood Pressure [Ri ght Arm] 123/81 Pulse Oximetry 95 90 90 Oxygen Delivery Me thod Room Air Room Air Room Air 09/03/24 20:10 09/03/24 20:35 09/03/24 22:00 Temperature 98.3 F 97.9 F 97.2 F L Pulse Rate 77 77 78 Pulse Rate [Pulse Oximeter] Respiratory Rate 18 20 18 Blood Pressure 113/62 115/75 99/68 Blood Pressure [Ri ght Arm] Pulse Oximetry 95 96 97 Oxygen Delivery Me thod Room Air Room Air Room Air 09/03/24 23:00 09/03/24 23:00 09/04/24 03:00 Temperature 97.2 F L 97.7 F Pulse Rate Pulse Rate [Pulse Oximeter] 60 74 Respiratory Rate 18 18 18 Blood Pressure Blood Pressure [Ri ght Arm] 99/68 115/78 Pulse Oximetry 94 94 94 Oxygen Delivery Me thod Room Air Room Air Room Air 09/04/24 07:44 09/04/24 08:43 09/04/24 11:47 Temperature 97.7 F 97.9 F Pulse Rate Pulse Rate [Pulse Oximeter] 76 62 Respiratory Rate 16 16 Blood Pressure Blood [facility] 116/77 109/65 Pulse Oximetry 92 94 Oxygen Delivery Me thod Room Air Room Air Room Air Documenting provider has reviewed patient's vital signs: yes Labs Labs: Laboratory Results - last 24 hr 09/02/24 09/04/24 21:03 05:57 WBC 9.41 RBC 3.70 L Hgb 9.2 L Hct 29.2 L MCV 79 L MCH 25 L MCHC 32 RDW Coeff of Gaby 17.3 H Plt Count 469 H Neut % (Auto) 67.6 Lymph % (Auto) 16.8 L [place] % (Auto) 12.4 H Eos % (Auto) 2.8 Baso % (Auto) 0.3 Neut # (Auto) 6.36 Lymph # (Auto) 1.60 [place] # (Auto) 1.20 H Eos # (Auto) 0.26 Baso # (Auto) 0.03 Abs Immat Gran (auto) 0.01 Imm/Tot Granulo (auto) 0.1 Blood Type A Positive Antibody Screen NEGATIVE Crossmatch (AHG) See Detail
[2024-09-04 19:00] VITALS: BP 107/63; PULSE 66; RESP 18; TEMP 37.1; O2SAT 95
[2024-09-04] MEDS: ATORVASTATIN 10 MG TABLET PO (21:07)
[2024-09-04] MEDS: MONTELUKAST 10 MG TABLET PO (21:08)
--- NOTE | 2024-09-04 22:05 | PC.NURSE ---
Road Train [employer] received call from son Altaf requesting update. verified patient is on approved release prior to information released. Son would like to add his brothers phone number as a contact and he is also on the approved HIPPA release form, Shantanu Rich [phone].
[2024-09-04 23:00] VITALS: BP 108/66; PULSE 75; RESP 22; TEMP 36.7; O2SAT 92
[2024-09-05] VITALS (7 sets, daily range): BP systolic 103–125; BP diastolic 59–78; PULSE 68–81; RESP 16–20; TEMP 36.3–37.4; O2SAT 92–95
[2024-09-05 05:32] LABS: Carcinoembryonic Antigen 52.9 ng/mL
--- NOTE | 2024-09-05 06:52 | PC.NURSE ---
The patient is alert to self only, rambles about random topics with all interactions, q2 repo and check and change... Green/black stooling despite bowel prep... colonoscopy scheduled for 1100....unsure if this will happen due to no clear stool. Reported mild abdominal discomfort upon assessment. VSS on RA. Emily CANTU BSN
[2024-09-05] MEDS: ESCITALOPRAM 10 MG TABLET PO (07:52)
[2024-09-05] MEDS: OMEPRAZOLE 20 MG CAPSULE DR PO ×2 (07:52→21:22)
[2024-09-05] MEDS: bisacodyL 5 MG TABLET DR 10 MG PO (16:06)
[2024-09-05] MEDS: SODIUM CHLORIDE 0.9 % (FLUSH) 10 ML SYRINGE 5 ML IVF ×2 (16:07→21:24)
[2024-09-05] MEDS: polyethylene glycoL 238 GM BULK BOTTLE PO (16:23)
--- NOTE | 2024-09-05 16:45 | PM.IMPN1 ---
Progress Note: A&P Assessment and plan (1) Anemia: Problem details: - Acute on chronic, microcytic with a high RDW, suspect GI bleeding secondary to probable colonic malignancy - hemoglobin was down to 6.6 in February of 2024 for which she was transfused 2 units packed red blood cells at that time and started on a proton pump inhibitor twice a day. Initial hemoglobin is 5.7. Transfused 3 units of blood to a hemoglobin of 9.2. Tolerated this well Status: Acute (2) Colonic mass: Problem details: - identified on CT, ascending colon Discussion with family: Will perform colonoscopy in the hospital. Status: Acute (3) Atrial fibrillation: Problem details: - HR well controlled, continue diltiazem, hold Eliquis due to anemia and suspected GI bleeding from colonic mass. I reduced the dose of diltiazem from 180 b.i.d. to 240 mg once a day because her blood pressure is somewhat low and her heart rate is well controlled. Status: Chronic (4) Chronic kidney disease, stage 3: Problem details: - stable Status: Chronic (5) Chronic heart failure with preserved ejection fraction: Problem details: - currently stable. Will need furosemide if she needs more than 1 unit of blood. Recheck hemoglobin in the morning. Status: Chronic (6) Stroke due to embolism: Problem details: She has had recurrent stroke according to her son. Possibly the cause of her dementia. Probably related to AFib. Eliquis was started after a stroke and then stop this summer because of GI bleeding. Had another stroke this fall. Would like her to start Eliquis but probably should wait till after she has her colon cancer resected. Status: Acute (7) Dementia: Problem details: Possibly multi-infarct dementia related to stroke. May no longer be able to provide medical decision making without family involvement Status: Acute Plan Continue in hospital for another tempted colonoscopy. After colonoscopy discharge back to home. The patient and her sons would need to meet with surgery/Oncology to discuss results of testing and plan of care going forward. Total time spent today is 75 minutes in evaluation and management and discussing with patient and family and other providers management of dementia delirium probable colon cancer, palliative care. Subjective Date Seen: 09/05/24 Interval history: Ashlie Rich is a 84 year old female with h/o vascular dementia, stroke, chronic anemia, C diff infection over the summer, chronic kidney disease, atrial fibrillation, hypertension hyperlipidemia heart failure with preserved ejection fraction, and asthma who had a hemoglobin drawn at a care center where she lives and this resulted as 5.2. She is noted to be pale but asymptomatic and was sent to the emergency department for further workup. Over this summer she had a hemoglobin of 6.6 and was admitted to [facility] with a C difficile infection, so colonoscopy was deferred to at the outpatient setting, but for unclear reasons was not completed. Patient is previous history of colonoscopy. It appears that the last colonoscopy was in 2013 and had adenomatous polyps. She was recommended a 3 year follow-up and apparently that did not occur either. On admission: Ashlie reported that she has constant abdominal pain that is in the mid abdomen and radiates off to the right. She tells me this has been there for months and she just takes Tums and Tylenol for it and has not sought medical attention for this pain. In the emergency department a CT abdomen and pelvis was obtained and shows an ascending colonic mass suspicious for malignancy. Patient has dementia. She is unable to recall the events described above. This is obtained from the medical record. She does concur with that when I give her this information however. According to her son she has been having strokes. She has chronic atrial fibrillation and has been on Eliquis but this was stopped when she had a GI bleed this summer. It was not restarted at that time perhaps because there is a hope that she would get outpatient colonoscopy before was resumed. Apparently had a stroke this fall. She is now in assisted living because of her disabilities. I spoke with her son about this and indicated that with her dementia I am not sure that she is currently able to make decisions for herself. She was agreeable to having me speak with her sons and I informed them that they are likely to have to take over her medical decision making. I spoke with both of them about a plan of care and they were both agreeable to it. 09/04/2024: Patient is sleepy. She has no complaints. She does not recall her circumstances. Tolerated the transfusion well. Beginning the prep for colonoscopy. Needing lots of reminders and encouragement. 09/05/2024: This morning patient was refusing nursing cares, blood draws, IV start, colonoscopy. She was a bit agitated and probably had some hospital acquired delirium. As the day went on this improved and also improved from her sons came in this afternoon. Colonoscopy was postponed because of her delirium. I spoke with her 2 sons at some length about her current status and prognosis. I indicated that there are not really good choices in this situation. She needs colonoscopy for a diagnosis and any plan of treatment. Colon resection would be difficult for her. Chemotherapy would be very difficult. Immune therapy might be a possibility that she could tolerate. Not proceeding with treatment would lead to eventual bowel obstruction from her cancer. She would also have ongoing need for transfusions. She would not be able to be on Eliquis without getting fairly frequent transfusions. That would put her at risk for stroke. In a patient who has dementia and has been resisting are medical interventions Exam Narrative: Exam Narrative: This morning she is agitated. She is refusing treatments. She does seem somewhat oriented to her circumstances. Respirations are unlabored. Cardiovascular: Irregular rhythm. Abdomen is soft without tenderness. Const: Vital Signs, click to edit/add: Vital Signs - 24 hr 09/04/24 19:00 09/04/24 23:00 09/04/24 23:00 Temperature 98.7 F 98.0 F Pulse Rate [Pulse Oximeter] 66 75 Respiratory Rate 18 22 22 Blood Pressure [Ri ght Arm] 107/63 108/66 Pulse Oximetry 95 92 92 Oxygen Delivery Me thod Room Air Room Air Room Air 09/05/24 03:00 09/05/24 07:00 09/05/24 07:00 Temperature 98.2 F 97.4 F L Pulse Rate [Pulse Oximeter] 71 78 Respiratory Rate 20 18 18 Blood Pressure [Ri ght Arm] 125/78 103/68 Pulse Oximetry 92 95 95 Oxygen Delivery Me thod Room Air Room Air Room Air 09/05/24 11:00 09/05/24 15:00 09/05/24 15:00 Temperature 98.4 F 98.7 F Pulse Rate [Pulse Oximeter] 70 68 Respiratory Rate 16 18 18 Blood Pressure [Ri ght Arm] 109/72 111/59 L Pulse Oximetry 94 94 94 Oxygen Delivery Me thod Room Air Room Air Room Air Documenting provider has reviewed patient's vital signs: yes Labs Labs: Laboratory Results - last 24 hr 09/03/24 11:33 CEA (off-site) 52.9
--- NOTE | 2024-09-05 19:48 | PC.NURSE ---
[id number] end of shift note: Pt AxOx4. Hx of dementia. Rambled speech and demanding orders when upset. Pt was upset at the start of shift stating, ?I do not want a colonoscopy; I want a cheese sandwich and water.? Pt refused a lab draw and an IV placement for the colonoscopy. notified and discussed with Pt and family. Family and financial underwriter also discussed. MD ordered a clear liquid diet until further intervention regarding POC. Once the family arrived, it was decided to move forward with the colonoscopy. Pt cooperative to receive an IV. IV started in the R forearm, SL. Bowel prep began, encouragement is needed for continuing to drink the fluids. VSS on RA. No nausea present. Pt reports abdominal discomfort but states tolerating. Pt has episodes of continence and incontinence with both bowel and bladder. Bowels are appearing black and liquid. Pt uses call light appropriately. Repo q2h and at Pts request. Pt appears resting bed watching television with call light in reach. ?
[2024-09-05] MEDS: dilTIAZem 240 MG CAP (CD) PO (21:22)
[2024-09-05] MEDS: ACETAMINOPHEN 325 MG TABLET 650 MG PO (21:22)
[2024-09-05] MEDS: ATORVASTATIN 10 MG TABLET PO (21:23)
[2024-09-05] MEDS: MONTELUKAST 10 MG TABLET PO (21:23)
[2024-09-05] MEDS: LACTATED RINGERS 1000 ML 1,000 ML 75 ML IV (23:48)
[2024-09-05] MEDS: MELATONIN 3 MG TABLET 6 MG PO (23:52)
[2024-09-06 03:00] VITALS: BP 109/61; PULSE 65; RESP 18; TEMP 36.5; O2SAT 96
[2024-09-06 06:33] LABS: Basophils Absolute Auto 0.03 K/uL (0.00-0.30); Basophils Percent Auto 0.4 % (0.0-3.0); Eosinophils Absolute Auto 0.27 K/uL (0.00-0.50); Eosinophils Percent Auto 3.8 % (0.0-7.0); Hematocrit 31.5 % (33.0-51.0); Hemoglobin* 9.8 gm/dL (12.0-16.0); Immature Granulocytes Abs Auto 0.02 K/uL (0.00-0.30); Immature Granulocytes Pct Auto 0.3 %; Lymphocytes Percent Auto 16.2 % (20-44); Mean Corpuscular HGB Conc 31 gm/dL (32-36); Mean Corpuscular Hemoglobin 25 pg (26-34); Mean Corpuscular Volume 80 fL (80-100); Neutrophils Absolute Auto 4.77 K/uL (1.7-7.0); Neutrophils Percent Auto 67.3 % (42.0-72.0); Platelet Count* 526 K/uL (140-440); RDW Coefficient of Variation % 18.1 % (11.5-15.5); Red Blood Count 3.96 m/uL (4.00-5.20); White Blood Count* 7.09 K/uL (4.50-11.00)
[2024-09-06 06:35] LABS: Slide Review Reflex No
[2024-09-06 06:53] LABS: Chloride* 100 mmol/L (96-114); Potassium* 3.4 mmol/L (3.6-5.1); Sodium* 132 mmol/L (135-149)
[2024-09-06 06:56] LABS: Anion Gap 7 mEq/L (7-15); Blood Urea Nitrogen* 8 mg/dL (7-30); Calcium* 8.1 mg/dL (8.4-10.6); Carbon Dioxide* 25 mmol/L (20-32); Creatinine* 0.8 mg/dL (0.5-1.5); Est. Creatinine Clearance* 45.33; Estimated Glomerular Filt Rate 74 ml/min; Glucose* 103 mg/dL (60-115)
[2024-09-06 08:09] VITALS: BP 122/77; PULSE 66; RESP 16; TEMP 36.7; O2SAT 94
--- NOTE | 2024-09-06 08:20 | PC.NURSE ---
Shift note ([id number]): Patient pleasant, alert and cooperative. Patient completed bowel prep last evening and stool has been?clear during the night. NPO since midnight. Denied pain during night.??
--- NOTE | 2024-09-06 10:03 | PM.DS1 ---
DS: Providers Provider Date Seen: 09/06/24 Date of admission: 09/03/24 07:06 Primary care physician: Not a Local Provider Admitting Clinician: Marcy Mireles MD Consults: 09/03/24 01:13 Consult to Adult Family Home Program Manager [CONS] Routine Comment: Reason for Consult:: Discharge Planning Needs 09/03/24 04:03 Consult to Physical Therapy [CONS] Routine Comment: Reason(s) for PT Consult:: Weakness Any Restrictions?:: No Restrictions 09/03/24 07:43 Consult to Physician [CONS] Routine Comment: Consulting Provider: Yolie Amador Has provider been notified: Yes 09/03/24 10:02 Consult to Occupational Therapy [CONS] Routine Comment: Reason(s) for OT Consult:: Evaluate and Treat Any Restrictions?:: No Restrictions Comment: MOCA Attending Physician on discharge: ESTEFANI Brown, JEREMIAH Aitkin Hospitalist Date of Discharge: 09/06/24 DS: Diagnosis Discharge Diagnosis (1) Anemia: Status: Acute Problem details: - Acute on chronic, microcytic with a high RDW, suspect GI bleeding secondary to probable colonic malignancy - hemoglobin was down to 6.6 in February of 2024 for which she was transfused 2 units packed red blood cells at that time and started on a proton pump inhibitor twice a day. CT without evidence of active bleed. Initial hemoglobin is 5.7. Transfused 3 units of blood to a hemoglobin of 9.2. Tolerated this well Hemoglobin is stable at 9.8 on morning of discharge, prior to colonoscopy. Should have a repeat hemoglobin during outpatient follow-up with PCP next week. (2) Colonic mass: Status: Acute Problem details: CT shows Ascending colon mass concerning for malignancy. No evidence of metastatic disease in the abdomen or pelvis. Discussion with family: Will perform colonoscopy in the hospital. Colonoscopy performed 09/06/2024 prior to discharge. Patient will need out patient follow-up with surgery and Oncology to determine further plan of care. This can be arranged through her PCP. (3) Atrial fibrillation: Status: Chronic Problem details: - HR well controlled, continue diltiazem, hold Eliquis due to anemia and suspected GI bleeding from colonic mass. I reduced the dose of diltiazem from 180 b.i.d. to 240 mg once a day because her blood pressure is somewhat low and her heart rate is well controlled. Patient is discharged on diltiazem 240 mg once daily. (4) Chronic kidney disease, stage 3: Status: Chronic Problem details: - stable (5) Chronic heart failure with preserved ejection fraction: Status: Chronic Problem details: - stable CXR shows Cardiomegaly.Mild central perihilar interstitial opacities, likely reflective of mild pulmonary edema. No layering pleural effusion. No pneumothorax. Extensive multilevel degenerative changes of the visualized spine. Extensive degenerative changes of the bilateral shoulders. Mild central perihilar interstitial opacities, likely reflective of mild pulmonary edema, compatible with CHF exacerbation in the setting of cardiomegaly. (6) Stroke due to embolism: Status: Acute Problem details: She has had recurrent stroke according to her son. Possibly the cause of her dementia. Probably related to AFib. Eliquis was started after a stroke and then stop this summer because of GI bleeding. Had another stroke this fall. Would like her to start Eliquis but probably should wait till after she has her colon cancer resected. Eliquis is held on discharge. To be discussed with PCP, pending further plan of care with surgery/Oncology. 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 May no longer be able to provide medical decision making without family involvement. DS: Summary Hospital Course Hospital Course: Course of care and details as noted above. Remainder of chronic medical comorbidities were monitored and managed with home medications. Status at Discharge Cognitive/behavioral status at discharge: Requiring EZ stand Overall status at discharge: patient is not back to baseline Time Spent with Patient Time attestation: Total time spent providing and/or coordinating discharge services: Time spent: Greater than 30 minutes Exam Narrative: Exam Narrative: PHYSICAL EXAM General: Resting, peaceful Cardiovascular: RRR Pulmonary: No dyspnea Skin: Warm, dry. Const: Vital Signs, click to edit/add: Vital Signs - 24 hr 09/05/24 11:00 09/05/24 15:00 09/05/24 15:00 Temperature 98.4 F 98.7 F Pulse Rate [Pulse Oximeter] 70 68 Respiratory Rate 16 18 18 Blood Pressure [Ri ght Arm] 109/72 111/59 L Pulse Oximetry 94 94 94 Oxygen Delivery Me thod Room Air Room Air Room Air 09/05/24 19:00 09/05/24 22:47 09/05/24 23:00 Temperature 99.4 F 98.2 F Pulse Rate [Pulse Oximeter] 72 81 Respiratory Rate 20 17 17 Blood Pressure [Ri ght Arm] 119/74 110/73 Pulse Oximetry 95 94 94 Oxygen Delivery Me thod Room Air Room Air Room Air 09/06/24 03:00 09/06/24 08:09 09/06/24 08:09 Temperature 97.7 F 98.1 F Pulse Rate [Pulse Oximeter] 65 66 Respiratory Rate 18 16 16 Blood Pressure [Ri ght Arm] 109/61 122/77 Pulse Oximetry 96 94 94 Oxygen Delivery Me thod Room Air Room Air Room Air DS: Data Data Completed and Pending Labs on day of discharge: Labs from last 24 hours 09/06/24 06:03 WBC 7.09 RBC 3.96 L Hgb 9.8 L Hct 31.5 L MCV 80 MCH 25 L MCHC 31 L RDW Coeff of Gaby 18.1 H Plt Count 526 H Neut % (Auto) 67.3 Lymph % (Auto) 16.2 L Owsley % (Auto) 12.0 H Eos % (Auto) 3.8 Baso % (Auto) 0.4 Neut # (Auto) 4.77 Lymph # (Auto) 1.10 [place]ley # (Auto) 0.90 Eos # (Auto) 0.27 Baso # (Auto) 0.03 Abs Immat Gran (auto) 0.02 Imm/Tot Granulo (auto) 0.3 Sodium 132 L Potassium 3.4 L Chloride 100 Carbon Dioxide 25 Anion Gap 7 BUN 8 Creatinine 0.8 Estimated Creat Clear 45.33 Estimated GFR 74 Glucose 103 Calcium 8.[address] scan - chest: Attestation: I have reviewed the pertinent imaging results. Radiologist's impression: Lungs and pleura: Mosaic attenuation throughout the lungs. Additional scattered atelectasis. No suspicious nodules or infiltrates. No pleural effusions, pleural thickening, or pneumothorax. Heart and vasculature: Cardiomegaly with coronary artery calcifications.. Thoracic aorta and pulmonary artery are normal in caliber. Lymph nodes/mediastinum: No mediastinal, hilar, or axillary adenopathy. Chest wall: No masses. Upper abdomen: Normal. Bones: Unremarkable for age. IMPRESSION: Mosaic attenuation throughout the lungs, likely related small vessel/airway disease. Otherwise, no acute intrathoracic abnormality, including CT evidence of intrathoracic metastatic disease. CTA abdomen pelvis: Attestation: I have reviewed the pertinent imaging results. Radiologist's impression: Lower chest: Few linear parenchymal bands, likely representing subsegmental atelectasis. Cardiomegaly. Coronary artery calcifications. Liver: Unremarkable. Normal in size and attenuation. No suspicious masses. Gallbladder and bile ducts: Unremarkable. No stones or inflammation. No biliary ductal dilatation. Spleen: Unremarkable. Normal in size. No masses. Adrenal glands: Unremarkable. No nodules. Pancreas: Atrophy of the pancreas. Kidneys: Left renal cysts. Subcentimeter hypodense foci are too small to accurately characterize. No hydronephrosis. GI tract: Enhancing mass in the ascending colon near the hepatic flexure measuring approximately 6.0 x 5.9 x 3.2 cm. Colonic diverticulosis without evidence of diverticulitis. No evidence of obstruction. No evidence of active contrast extravasation. Appendix not visualized. Lymph nodes: No lymph nodes enlarged by size criteria. Vasculature: Moderate to severe scattered atherosclerotic calcifications. Abdominal aorta is normal in caliber. Patent mesenteric arteries. Omentum/Peritoneum/Abdominal Wall: Unremarkable. No free air or significant free fluid. Pelvis: Unremarkable. Bones: No suspicious osseous lesions. Degenerative changes. Left hip arthroplasty. IMPRESSION: 1. Ascending colon mass concerning for malignancy. 2. No evidence of metastatic disease in the abdomen or pelvis. 3. No active GI bleed. 4. Other incidental findings as above. Discharge Plan Discharge Disposition: [facility] Discharge Location: [facility] Date of Admission: 09/03/24 07:06 Attending Provider on Discharge: Jocelynn Franco Consulting Providers: Yolie Amador Primary Care Provider: Provider,Not a Local Condition: Stable Anticipated Discharge Date/Time: 09/06/24 14:00 Discharge Medications: New diltiazem HCl 240 mg Capsule,Extended Release 24hr 240 mg PO HS Qty: 30 0RF Continued pantoprazole 40 mg tablet,delayed release (DR/EC) 40 mg PO DAILY albuterol sulfate 90 mcg/actuation HFA aerosol inhaler 2 inh inhalation Q4H PRN escitalopram oxalate 10 mg tablet 10 mg PO DAILY furosemide 40 mg tablet 40 mg PO DAILY ferrous sulfate [FeroSul] 325 mg (65 mg iron) tablet 325 mg PO DAILY atorvastatin 10 mg tablet 10 mg PO DAILY melatonin 5 mg capsule 5 mg PO HS montelukast 10 mg tablet 10 mg PO HS guaifenesin 400 mg tablet 400 mg PO Q4H PRN ondansetron 4 mg tablet,disintegrating 4 mg PO Q4H PRN Rx Instructions: give 1st dose 30min before emetogenic chemo sennosides-docusate sodium [Senna-S] 8.6-50 mg tablet 1 tab-cap PO BID PRN cholecalciferol (vitamin D3) [Vitamin D3] 25 mcg (1,000 unit) tablet,chewable 3,000 unit PO DAILY diclofenac sodium 1 % gel 4 g topical BID Rx Instructions: apply to single knee, ankle, foot; for foot includes sole/toes/top of foot acetaminophen 500 mg capsule 1,000 mg PO TID Discontinued Eliquis 5 mg tablet 5 mg PO BID calcium 600 mg capsule 1,200 mg PO Q6H PRN Discharge Orders: Discharge Order (Routine); Ordered 09/06/24 Ordered By: Jocelynn Franco Additional Instructions: Eliquis is being held until follow up with Surgery/Onocology. Would recommend restarting following surgical resection if this is the plan. Patient and family will need outpatient follow up with Surgery and Oncology to determine further plan of care. This can be arranged through her facility PCP. Activity Level: Activity as Tolerated Discharge Diet: Regular Follow Up Appointments: Provider,Not a Local [Primary Care Provider] - (Post hospital follow up with facility PCP - PCP can assist with outpatient surgical and oncology follow up) [facility] Instructions Admit to: return to LTC Discharge Potential: Poor Length of Stay: >90 days Can use facility standing orders?: Yes Code Status: Full Code Rehab Potential: Poor Oxygen: No Lab Orders: Recheck hgb in 2-3 days Orders are good >30 days: No Signature: Jocelynn Frnaco, ESTEFANI, PA-[facility] Hospitalist
--- NOTE | 2024-09-06 10:40 | P.ANES_ITS ---
Anesthesia Charges Start Date/Time Anesthesia Start Date: 09/06/24 Anesthesia Start Time: 10:07 Stop Date/Time Anesthesia Stop Date: 09/06/24 Anesthesia Stop Time: 10:40 Coding CPT Codes CPT Codes: ANES LWR INTST NDSC NOS - 75455 ([id number]) P3 - PATIENT W/SEVERE SYS DISEASE, QK - MULTIMEDIA AUTHORING SPECIALIST 2-4 CNCRNT ANES PROC, QX - AUTO SUSPENSION AND STEERING MECHANIC SVC W/ MD MED DIRECTION
--- NOTE | 2024-09-06 10:40 | W.ANESCHARGE ---
Anesthesia Charges Start Date/Time Anesthesia Start Date: 09/06/24 Anesthesia Start Time: 10:07 Stop Date/Time Anesthesia Stop Date: 09/06/24 Anesthesia Stop Time: 10:40 Coding CPT Codes CPT Codes: ANES LWR INTST NDSC NOS - 34603 ([id number]) P3 - PATIENT W/SEVERE SYS DISEASE, QK - NEGATIVE RESTORER 2-4 CNCRNT ANES PROC, QX - DRUPAL ARCHITECT SVC W/ MD MED DIRECTION
--- NOTE | 2024-09-06 10:42 | W.ANESCHARGE ---
Anesthesia Charges Start Date/Time Anesthesia Start Date: 09/06/24 Anesthesia Start Time: 10:07 Stop Date/Time Anesthesia Stop Date: 09/06/24 Anesthesia Stop Time: 10:40 Summary Extremes of Age - Over 70 or under 1: MDA Coding CPT Codes CPT Codes: ANES LWR INTST NDSC NOS - 70303 ([id number]) QK - DISTRIBUTION A CLASS LINEMAN 2-4 CNCRNT ANES PROC, QX - DYE WEIGHER HELPER SVC W/ MD MED DIRECTION, P3 - PATIENT W/SEVERE SYS DISEASE Additional Codes: Summary - Extremes of Age - Over 70 or under 1: MDA ([id number])
[2024-09-06 11:13] VITALS: BP 113/72; PULSE 68; RESP 14; TEMP 36.7; O2SAT 96
[2024-09-06] MEDS: FUROSEMIDE 20 MG TABLET 40 MG PO (11:24)
[2024-09-06] MEDS: FERROUS SULFATE 325 MG TABLET PO (11:24)
[2024-09-06] MEDS: OMEPRAZOLE 20 MG CAPSULE DR PO (11:25)
[2024-09-06] MEDS: ESCITALOPRAM 10 MG TABLET PO (11:25)
--- NOTE | 2024-09-06 11:25 | PC.SOCIAL ---
Discharge planning: Called sonAltaf [phone] regarding d/c plan. Son is aware of discharge planned for today and confirmed pt has a bed hold at [facility]. Son is aware and agrees with pt being transported by EMS when discharged. Provided son by phone with information on the Important Message From Medicare and the right to appeal discharge. Son states he wants to talk with nurse before he agrees to discharge and will call social work professor back if he plans to appeal discharge, otherwise, pt can be discharged to [facility] today. Provided son with direct phone number to contact social work professor if needed. Called [facility] and spoke with Osman who is expecting pt to return today. Current plan is for non-emergency transport at noon. Faxed discharge orders to [facility].
--- NOTE | 2024-09-06 12:46 | PC.NURSE ---
Pt alert to self. Pt had no complaints of pain. Pt sleeping throughout morning. Pt was NPO due to scheduled scope today 09/06/24. Pt was brought down to procedure at 0915. Pt's VSS. Nurse to nurse report given to Melissa at [facility]. Pt's son given update. Pt ate after procedure and tolerated well. Pt's IV removed; catheter intact. Pt picked up by EMS at noon.
[2024-09-06 12:49] VITALS: BP 113/72; PULSE 78; RESP 14; TEMP 36.7
== END 2024-09-06 12:03 | DRG 812 ==
LOC: ED 20:31 → MEDSURG 23:08
PROVIDERS: Family Medicine; Admitting Provider Family Medicine; Emergency Provider Emergency Medicine; Visit Provider Family Medicine
DX: D62 Acute posthemorrhagic anemia (principal); I13.0 Hypertensive heart and chronic kidney disease with heart failure and stage 1 through stage 4 chronic kidney disease, or unspecified chronic kidney disease; C18.3 Malignant neoplasm of hepatic flexure; I50.32 Chronic diastolic (congestive) heart failure; K92.2 Gastrointestinal hemorrhage, unspecified; I48.20 Chronic atrial fibrillation, unspecified; N18.30 Chronic kidney disease, stage 3 unspecified; F01.C0 Vascular dementia, severe, without behavioral disturbance, psychotic disturbance, mood disturbance, and anxiety; Z86.73 Personal history of transient ischemic attack (TIA), and cerebral infarction without residual deficits
CPT/HCPCS: 00811; 36415; 36430; 45380; 71046; 71260; 74174; 80048; 81210; 82270; 82378; 83605; 83880; 84484; 85018; 85025; 86850; 86900; 86901; 86922; 87081; 87493; 87631; 88305; 88341; 88342; 97161; 97165; 97530; 99100; 99284; 99285; A9270; G0378; J1940; J2371; J2405; J2704; J7120; P9016; Q9967

== ENCOUNTER 2024-09-06 11:54 | Outpatient (CLI) | payer MEDICARE, SELFPAY | END 2024-09-06 11:55 | disposition home or self-care (01) | LOC: AMB 09-19 08:24 | PROVIDERS: Visit Provider Internal Medicine | DX: D64.9 Anemia, unspecified (principal); K63.89 Other specified diseases of intestine; N18.30 Chronic kidney disease, stage 3 unspecified; I50.32 Chronic diastolic (congestive) heart failure; I48.91 Unspecified atrial fibrillation; F03.90 Unspecified dementia, unspecified severity, without behavioral disturbance, psychotic disturbance, mood disturbance, and anxiety | CPT/HCPCS: A0425; A0428 ==